=== PATIENT | male | born 1980 | race Hispanic/Latino ===

== ENCOUNTER 2017-08-29 18:40 | Observation (INO) | payer SELFPAY ==
[2017-08-29 18:46] VITALS: TEMP 97.2
[2017-08-29 20:16] LABS: BASO # 0.1 K/uL (0.0-0.2); BASO % 0.9 % (0.0-2.0); EOS # 0.1 K/uL (0.0-0.7); EOS % 1.7 % (0.0-4.0); HEMATOCRIT 50.5 % (35.0-51.0); LYMPH # 3.2 K/uL (1.0-4.3); LYMPH % 46.7 % (20.0-40.0); MEAN CELL VOLUME 90.6 fl (80.0-94.0); MEAN CORPUSCULAR HEMOGLOBIN 30.7 pg (27.0-31.0); MEAN CORPUSCULAR HGB CONC 33.9 g/dL (33.0-37.0); MEAN PLATELET VOLUME 7.7 fl (7.2-11.7); MONO # 0.3 K/uL (0.0-0.8); MONO % 4.8 % (0.0-10.0); NEUT # 3.2 K/uL (1.8-7.0); NEUT % 45.9 % (50.0-75.0); NRBC % 0.1 % (0.0-0.0); RED CELL DISTRIBUTION WIDTH 12.7 % (11.5-14.5)
[2017-08-29 20:27] LABS: ALB/GLOB RATIO 1.7 (1.0-2.1); ALKALINE PHOSPHATASE 70 U/L (38-126); ALT/SGPT 48 U/L (21-72); AST/SGOT 37 U/L (17-59); BILIRUBIN,TOTAL 0.5 mg/dl (0.2-1.3); BLOOD UREA NITROGEN 7 mg/dl (9-20); CALCIUM 9.1 mg/dL (8.4-10.2); CARBON DIOXIDE 25 mmol/L (22-30); CHLORIDE 106 mmol/L (98-107); GFR AFRICAN-AMERICAN > 60; GLUCOSE,RANDOM 84 mg/dL (75-110); POTASSIUM 3.8 MMOL/L (3.6-5.0); SODIUM 153 mmol/l (132-148)
[2017-08-29 20:53] LABS: ALCOHOL SERUM 346 mg/dl (0-10)
--- NOTE | 2017-08-29 21:51 | ED PDOC ---
HPI: Psych/Substance Abuse Time Seen by Provider: 08/29/17 19:00 Chief Complaint (Nursing): Alcohol Ingestion Chief Complaint (Provider): Alcohol Ingestion ED Caveat: Intoxicated History Per: Patient History/Exam Limitations: intoxication Onset/Duration Of Symptoms: Days (x 1) Current Symptoms Are (Timing): Still Present Modifying Factor(s): Alcohol Additional History Per: EMS Additional Complaint(s): Brian is a 36 y/o male who was brought to the ED by EMS after being found publicly intoxicated. He appears sleepy but is arousable to verbal stimuli. Patient admits to drinking alcohol today. Denies drug use and fall/trauma. Patient offers no physical complaints at this time. PMD: None Past Medical History Reviewed: Historical Data, Nursing Documentation, Vital Signs Vital Signs: Last Vital Signs Temp 97.2 F L 08/29/17 18:43 Pulse 78 08/29/17 21:45 Resp 16 08/29/17 21:45 BP 106/59 L 08/29/17 21:45 Pulse Ox 97 08/29/17 21:45 - Medical History PMH: No Chronic Diseases - Family History Family History: States: Unknown Family Hx - Social History Current smoker - smoking cessation education provided: Yes Alcohol: > 2 Drinks/Day Drugs: Denies - Allergies Allergies/Adverse Reactions: Allergies Allergy/AdvReac Type Severity Reaction Status Date / Time No Known Allergies Allergy Verified 08/29/17 18:42 Review of Systems ROS Statement: Except As Marked, All Systems Reviewed And Found Negative Psych: Positive for: Other (Alcohol intoxication ) Physical Exam - Reviewed Nursing Documentation Reviewed: Yes Vital Signs Reviewed: Yes - Physical Exam Appears: Positive for: Non-toxic, No Acute Distress Head Exam: Positive for: ATRAUMATIC, NORMAL INSPECTION, NORMOCEPHALIC Skin: Positive for: Normal Color, Warm, Dry Eye Exam: Positive for: Normal appearance, EOMI, PERRL Cardiovascular/Chest: Positive for: Regular Rate, Rhythm. Negative for: Murmur Respiratory: Positive for: Normal Breath Sounds. Negative for: Accessory Muscle Use, Respiratory Distress Gastrointestinal/Abdominal: Positive for: Normal Exam, Soft. Negative for: Tenderness, Distended Extremity: Positive for: Normal ROM. Negative for: Pedal Edema, Deformity Neurologic/Psych: Positive for: Alert (and awake), Other (Slurred speech, unsteady gait) - Laboratory Results Result Diagrams: 10/03/17 20:11 08/29/17 20:11 - ECG O2 Sat by Pulse Oximetry: 97 (RA) Pulse Ox Interpretation: Normal Medical Decision Making Medical Decision Making: Time: 19:24 Initial Plan: --CMP --CBC --Alcohol serum --Pending reevaluation Time: 19:50 --Placed on ED-OBS for ETOH intoxication, pending clinical sobriety Scribe Attestation: Documented by Shama Savage, acting as a scribe for Evon Ferguson MD Provider Scribe Attestation: All medical record entries made by the Scribe were at my direction and personally dictated by me. I have reviewed the chart and agree that the record accurately reflects my personal performance of the history, physical exam, medical decision making, and the department course for this patient. I have also personally directed, reviewed, and agree with the discharge instructions and disposition. ED OBSERVATION Date of observation admission: 08/29/17 Time of observation admission: 19:50 - Observation admission statement Patient is placed on observation because of need: for serial examinations to determine stability for disposition - Goals of Observation Goals of Observation: Clinical sobriety - Progress Note Time:: 19:50 Observation Progress Note: Patient remains intoxicated with unsteady gait and slurred speech Progress Note: 08/29/17 22:10 --Patient resting. Vitals stable 08/30/17 00:00 -Patient signed out to Dr. Davila, pending sobriety Disposition - Clinical Impression Clinical Impression: Alcohol abuse with intoxication - Patient ED Disposition Is Patient to be Admitted: Transfer of Care - Disposition Disposition: Transfer of Care Disposition Time: 00:00 Condition: STABLE Patient Signed Over To: John Davila
--- NOTE | 2017-08-30 00:37 | ED PDOC ---
- Laboratory Results Result Diagrams: 08/29/17 20:11 08/29/17 20:11 - ECG O2 Sat by Pulse Oximetry: 97 (RA) Medical Decision Making Medical Decision Makin:00 -Patient signed over to me from Dr. Barnard; pending sobriety At 5AM pt is AAO x3 and has steady gait with fluent speech Patient is stable for discharge home Dx Alcohol intoxication Disposition - Clinical Impression Clinical Impression: Alcohol abuse with intoxication - POA Present On Arrival: None - Disposition Disposition: Routine/Home Disposition Time: 19:50 Condition: STABLE
[2017-08-30 01:36] VITALS: RESP 16
[2017-08-30 02:54] VITALS: BP 104/74; PULSE 80
[2017-08-30 05:19] VITALS: O2SAT 97
== END 2017-08-30 05:06 | disposition home or self-care (01) ==
LOC: H.ER 18:40 → H.EROBSV 19:50
PROVIDERS: ADMIT Emergency Medicine; ATTEND Emergency Medicine
DX: F10.129 Alcohol abuse with intoxication, unspecified (principal); F17.200 Nicotine dependence, unspecified, uncomplicated; Y90.8 Blood alcohol level of 240 mg/100 ml or more
CPT/HCPCS: 80053; 82948; 85025; 99283; G0378; G0480